=== PATIENT | male | born 1945 | race Hispanic/Latino ===

== ENCOUNTER 2019-10-08 07:13 | Day surgery (SDC) | payer OTHER ==
[~2019-10-08] VITALS: Ht 175.3 cm; Wt 80.3 kg
[2019-10-08] VITALS (8 sets, daily range): BP systolic 96–115; BP diastolic 36–72
[~2019-10-08 07:13] MED LIST: SODIUM CHLORIDE 0.9% 1000ML 1,000 ML IV ONE
[2019-10-08] MEDS ORDERED: ATOR20TA65 PO (09:14)
[2019-10-08] MEDS ORDERED: SILD100T PO (09:14)
[2019-10-08] MEDS ORDERED: LISI-613 PO (09:14)
[2019-10-08] MEDS ORDERED: KETO5DRO6 OP (09:14)
[2019-10-08] MEDS ORDERED: AMLO10TA7 PO (09:14)
[2019-10-08] MEDS ORDERED: HYDR12.54 PO (09:14)
[2019-10-08] MEDS ORDERED: PROPOFOL 10 MG/ML 20ML VIAL IV ONE (09:36)
[2019-10-08] MEDS ORDERED: LEVOFLOXACIN 500 MG/D5W 100 ML 100 ML ONE ×2 (10:19→11:08)
[2019-10-08] MEDS ORDERED: MIDAZOLAM HCL 1 MG/ML 2ML VIAL ONE (10:24)
--- NOTE | 2019-10-08 12:15 | NUR ---
IV IV ANTIBIOTIC COMPLETED. TOLERATED WELL.
== END 2019-10-08 12:30 | disposition home or self-care (01) ==
LOC: DAH 07:13 → ENDO 07:13
PROVIDERS: ATTEND Internal Medicine Gastroenterology
DX: R12 Heartburn (principal); K29.70 Gastritis, unspecified, without bleeding; K44.9 Diaphragmatic hernia without obstruction or gangrene; K22.8 Other specified diseases of esophagus; K31.89 Other diseases of stomach and duodenum; K86.2 Cyst of pancreas; E78.2 Mixed hyperlipidemia; I12.9 Hypertensive chronic kidney disease with stage 1 through stage 4 chronic kidney disease, or unspecified chronic kidney disease; N18.9 Chronic kidney disease, unspecified; Z79.899 Other long term (current) drug therapy; Z87.891 Personal history of nicotine dependence; Z72.89 Other problems related to lifestyle; Z90.49 Acquired absence of other specified parts of digestive tract; Z82.49 Family history of ischemic heart disease and other diseases of the circulatory system
CPT/HCPCS: 43237; 43239; 88305; 93005; A4215; A4221; A4222; A4223; A4606; A4620; A4663; J1956 ×2; J2250; J2704; J7030

== ENCOUNTER → 2019-11-02 | Outpatient (CLI) | payer OTHER ==
[~2019-11-02] MED LIST changes: +AMLO10TA7 PO; +ATOR20TA65 PO; +HYDR12.54 PO; +KETO5DRO6 OP; +LISI-613 PO; +SILD100T PO; -SODIUM CHLORIDE 0.9% 1000ML 1,000 ML IV ONE
== END | disposition home or self-care (01) ==
LOC: RAH 08:56
PROVIDERS: ATTEND Internal Medicine Gastroenterology
DX: K44.9 Diaphragmatic hernia without obstruction or gangrene (principal); R93.3 Abnormal findings on diagnostic imaging of other parts of digestive tract
CPT/HCPCS: 74240

== ENCOUNTER → 2020-04-20 | Outpatient (CLI) | payer OTHER ==
[2020-04-20 11:33] LABS: CREATININE 1.7 mg/dL (0.5-1.5)
== END | disposition home or self-care (01) ==
LOC: LAB 10:25
PROVIDERS: ATTEND Internal Medicine
DX: R93.3 Abnormal findings on diagnostic imaging of other parts of digestive tract (principal)
CPT/HCPCS: 36415; 82565; 84520

== ENCOUNTER → 2020-04-27 | Outpatient (CLI) | payer OTHER ==
[~2020-04-27] MED LIST changes: +GADODIAMIDE 10 MMOL/20 ML VIAL IV ONE
== END | disposition home or self-care (01) ==
LOC: RAH 08:30
PROVIDERS: ATTEND Internal Medicine
DX: K44.9 Diaphragmatic hernia without obstruction or gangrene (principal); K76.89 Other specified diseases of liver; N28.1 Cyst of kidney, acquired; R93.3 Abnormal findings on diagnostic imaging of other parts of digestive tract; Z90.49 Acquired absence of other specified parts of digestive tract
CPT/HCPCS: 74183; A9579

== ENCOUNTER 2021-04-03 05:54 | Day surgery (SDC) | payer OTHER ==
[~2021-04-03] VITALS: Ht 172.7 cm; Wt 80.7 kg
[~2021-04-03 05:54] MED LIST changes: +AMLO-258 PO; -AMLO10TA7 PO; -GADODIAMIDE 10 MMOL/20 ML VIAL IV ONE; -KETO5DRO6 OP; -LISI-613 PO; +LISI20TA24 PO
[2021-04-03] MEDS ORDERED: 0.9%NACL 1000ML 1,000 ML IV ONE (06:20)
[2021-04-03 07:11] VITALS: BP 148/66
[2021-04-03] MEDS ORDERED: PROPOFOL 10 MG/ML 20ML VIAL IV ONE ×2 (08:52→09:19)
[2021-04-03 09:40] VITALS: BP 107/52
[2021-04-03 09:50] VITALS: BP 109/55
[2021-04-03 10:05] VITALS: BP 115/52
== END 2021-04-03 10:05 | disposition home or self-care (01) ==
LOC: ENDO 05:54 → DAH 05:54 → ENDO 10:05
PROVIDERS: ATTEND Internal Medicine Gastroenterology
DX: R93.3 Abnormal findings on diagnostic imaging of other parts of digestive tract (principal); K86.2 Cyst of pancreas; D49.0 Neoplasm of unspecified behavior of digestive system; K86.89 Other specified diseases of pancreas; K44.9 Diaphragmatic hernia without obstruction or gangrene; I12.9 Hypertensive chronic kidney disease with stage 1 through stage 4 chronic kidney disease, or unspecified chronic kidney disease; N18.9 Chronic kidney disease, unspecified; E78.5 Hyperlipidemia, unspecified; Z90.49 Acquired absence of other specified parts of digestive tract; Z98.890 Other specified postprocedural states
CPT/HCPCS: 36415; 43242; 82378; 87426; A4606; J2704; J7030